=== PATIENT | male | born 1955 | race Caucasian/White ===

== ENCOUNTER 2025-03-03 08:58 | Emergency (ER) | payer OTHER, SELFPAY ==
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
[2025-03-03 09:15] VITALS: BP 158/82; PULSE 75; O2SAT 95
[2025-03-03 09:19] VITALS: BP 123/66; PULSE 73; RESP 18; TEMP 37.1; O2SAT 96; BMI 38.1
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
[2025-03-03 09:56] LABS: MANUAL DIFF FLAG NO
[2025-03-03 09:57] LABS: Hematocrit 46.2 % (42.0-52.0); Hemoglobin 15.5 g/dl (14.0-18.0); Imm Gran Abs Auto 0.06 X10*3/uL (0.00-0.03); Imm Gran Pct Auto 0.7 % (0.0-0.4); Lymphocytes Absolute Auto 1.5 X10*3/uL (1.2-4.9); Mean Corpuscular HGB Conc 33.5 g/dl (31.0-36.0); Mean Corpuscular Hemoglobin 29.5 pg (27.0-33.0); Mean Corpuscular Volume 87.8 fL (80.0-98.0); NRBC Abs Auto 0.000 X10*3/uL (0.0-0.012); NRBC Pct Auto 0.0 /100WBC (0.0-0.2); Platelet Count 244 X10*3/uL (160-400); Red Blood Count 5.26 X10*6/uL (4.60-5.80); White Blood Count 9.2 X10*3/uL (4.8-10.8)
[2025-03-03 10:08] LABS: INTERNATIONAL NORM RATIO 1.2 (0.9-1.1); Prothrombin Time 13.9 SEC (10.9-12.4)
[2025-03-03 10:11] LABS: Partial Thromboplastin Time 31.1 SEC (26.7-34.1)
[2025-03-03 10:56] LABS: Alanine Aminotransferase 32 U/L (0-40); Albumin Level 4.4 g/dL (3.5-5.0); Anion Gap 15 (12-20); Aspartate Amino Transferase 39 U/L (5-37); Blood Urea Nitrogen 15 mg/dL (9-16); Calcium 9.8 mg/dL (8.4-10.2); Carbon Dioxide 21 mmol/L (22-29); Chloride 107 mmol/L (96-108); Creatinine Clr Calc Pharmacy 106.7; Estimated Glomerular Filt Rate > 60; Magnesium 2.0 mg/dL (1.6-2.6); Potassium 4.3 mmol/L (3.3-5.1); Sodium 139 mmol/L (135-145); Total Protein 7.2 g/dL (6.5-8.0)
[2025-03-03 11:11] LABS: Alkaline Phosphatase 74 U/L (39-117)
[2025-03-03 13:29] VITALS: BP 137/65; PULSE 76; RESP 20; O2SAT 94
[2025-03-03] MEDS: iohexoL 350 MG/ML 100 ML INFUS..BTL IV (14:38)
--- NOTE | 2025-03-03 15:47 | MHC.EDTECH ---
pt found on chair incontinent of urine. unknown amount of urine was found on chair and floor, RN and provider made aware
[2025-03-03 15:48] LABS: MANUAL DIFF FLAG NO
[2025-03-03 15:55] LABS: Hematocrit 44.6 % (42.0-52.0); Hemoglobin 15.1 g/dl (14.0-18.0); Imm Gran Abs Auto 0.06 X10*3/uL (0.00-0.03); Imm Gran Pct Auto 0.4 % (0.0-0.4); Lymphocytes Absolute Auto 1.2 X10*3/uL (1.2-4.9); Mean Corpuscular HGB Conc 33.9 g/dl (31.0-36.0); Mean Corpuscular Hemoglobin 29.4 pg (27.0-33.0); Mean Corpuscular Volume 86.8 fL (80.0-98.0); NRBC Abs Auto 0.000 X10*3/uL (0.0-0.012); NRBC Pct Auto 0.0 /100WBC (0.0-0.2); Platelet Count 255 X10*3/uL (160-400); Red Blood Count 5.14 X10*6/uL (4.60-5.80); White Blood Count 13.8 X10*3/uL (4.8-10.8)
[2025-03-03 15:58] VITALS: BP 135/50; PULSE 91; RESP 20; TEMP 36.7; O2SAT 96
[2025-03-03 16:30] VITALS: BP 138/65; PULSE 91; RESP 20; TEMP 36.7; O2SAT 96
== END 2025-03-03 16:30 | disposition home or self-care (01) ==
PROVIDERS: Physician Assistant; Emergency Provider Emergency Medicine; PCP Family Medicine
DX: S81.011A Laceration without foreign body, right knee, initial encounter (principal); V13.4XXA Pedal cycle driver injured in collision with car, pick-up truck or van in traffic accident, initial encounter; Y93.55 Activity, bike riding; Y92.9 Unspecified place or not applicable; Y99.9 Unspecified external cause status; E11.9 Type 2 diabetes mellitus without complications; I10 Essential (primary) hypertension; Z79.01 Long term (current) use of anticoagulants
CPT/HCPCS: 12002; 36415; 70450; 71260; 72125; 73030; 73080; 73110; 73564; 74177; 76604; 76705; 80048; 80076; 83735; 85025; 85610; 85730; 93308; 99284; 99291; Q9967

== ENCOUNTER → 2025-03-03 09:17 | Outpatient (BNV) | payer MEDICARE, MEDICAID, SELFPAY | PROVIDERS: Emergency Provider Emergency Medicine; PCP Family Medicine; Visit Provider Radiology Diagnostic Radiology | DX: M47.812 Spondylosis without myelopathy or radiculopathy, cervical region (principal); M17.11 Unilateral primary osteoarthritis, right knee; M25.511 Pain in right shoulder | CPT/HCPCS: 72125; 73030; 73564 ==